=== PATIENT | female | born 1980 | race Two or more races ===

== ENCOUNTER 2021-01-24 10:02 | Emergency (ER) | payer SELFPAY ==
[~2021-01-24] VITALS: Ht 165.1 cm; Wt 88.7 kg
[2021-01-24 11:05] LABS: BASOPHILS % (AUTO) 0 % (0-1); EOSINOPHILS % (AUTO) 0 % (1-7); LYMPHOCYTES % (AUTO) 13 % (22-44); MEAN CORPUSCULAR HGB CONC 31.6 g/dL (32.4-35.8); MEAN PLATELET VOLUME 8.1 fL (7.4-10.4); MONOCYTES % (AUTO) 7 % (2-9); NEUTROPHILS % (AUTO) 79 % (42-75); PLATELET COUNT 399 x10^3/uL (130-400); RED BLOOD COUNT 5.32 x10^6/uL (3.82-5.3); RED CELL DISTRIBUTION WIDTH 16.3 % (9.6-15.2)
[2021-01-24 11:15] LABS: ALANINE AMINOTRANSFERASE 26 U/L (12-78); ALBUMIN 3.2 g/dL (3.4-5.0); ANION GAP 5 mmol/L (5-15); CALCIUM 8.7 mg/dL (8.5-10.1); CHLORIDE 108 mmol/L (98-107)
[2021-01-24 11:18] LABS: ALKALINE PHOSPHATASE 94 U/L (45-117); BILIRUBIN,TOTAL 0.5 mg/dL (0.2-1.0); CREATININE 0.57 mg/dL (0.55-1.02)
--- NOTE | 2021-01-24 12:26 | NUR ---
ICE CREAM SERVER: PT FAMILY MEMBER UP TO NURSING STATION, STATES SHE IS HAVING ALOT OF BREAST PAIN. EXPLAINED THAT ED IS CURRENTLY FILLED AND WILL CALL BACK WHEN AVAILABLE.
--- NOTE | 2021-01-24 12:31 | NUR ---
BEAMING INSPECTOR: PT TO ROOM FROM LOBBY
--- NOTE | 2021-01-24 12:32 | NUR ---
PT AMBULATORY TO ROOM FROM LOBBY, PT CHANGED INTO GOWN. MONITORS IN PLACE. FAMILY AT BS. CALL LIGHT WITHIN REACH
--- NOTE | 2021-01-24 12:38 | NUR ---
PA STUDENT AT
[2021-01-24] MEDS ORDERED: KETOROLAC 60 MG/2 ML ONE (12:57)
[2021-01-24] MEDS ORDERED: KETOROLAC 30 MG/1 ML IM ONE (13:00)
[2021-01-24] MEDS ORDERED: CEPHALEXIN 500 MG CAPSULE PO ONE (13:00)
[2021-01-24] MEDS ORDERED: CEPHALEXIN 500 MG CAPSULE ONE (13:03)
--- NOTE | 2021-01-24 13:37 | NUR ---
US AT BS. THIS RN WAS THE TAXATION ECONOMIST FOR US TECH
--- NOTE | 2021-01-24 14:15 | NUR ---
PA STUDENT AT
[2021-01-24] MEDS ORDERED: SULFAMETH./TRIMETHOPRIM DS 800MG/160MG TABLET ONE (14:16)
[2021-01-24] MEDS ORDERED: SULFAMETH./TRIMETHOPRIM DS 800MG/160MG TABLET PO ONE (14:30)
--- NOTE | 2021-01-24 15:18 | NUR ---
PT TO IR
--- NOTE | 2021-01-24 15:37 | NUR ---
PT BACK FROM IR
--- NOTE | 2021-01-24 15:45 | NUR ---
BREAK RN: PT BACK FROM IR. FAMILY AT BEDSIDE. VS STABLE. NO ACUTE DISTRESS NOTED. CALL LIGHT IN PLACE.
[2021-01-24 15:49] VITALS: BP 116/72
--- NOTE | 2021-01-24 16:46 | NUR ---
Patient given discharge instructions and RX, they have confirmed that they understand the instructions. Patient ambulatory with steady gait.
== END 2021-01-24 16:48 | disposition home or self-care (01) ==
LOC: ED 14:38
DX: N61.1 Abscess of the breast and nipple (principal)
CPT/HCPCS: 10030; 36415; 75989; 76642; 76942; 80053; 85025; 87070; 87205; 96372; 99285; J1885; 87077

== ENCOUNTER 2021-01-26 18:00 | Emergency (ER) | payer SELFPAY ==
[~2021-01-26] VITALS: Ht 162.6 cm; Wt 87.4 kg
--- NOTE | 2021-01-26 19:46 | NUR ---
clinical appeals reviewer: Pt ambulatory to room from lobby at this time.
--- NOTE | 2021-01-26 20:00 | NUR ---
PT AMBULATED TO ROOM FROM [facility]. PT CO LEFT BREAST ABSCESS THAT SHE GOT PARTIALLY DRAINED IN IR 3 DAYS AGO. SHE WAS SENT INOCENCIA DELMI ABX AND TOLD TO COME BACK IN 3 DAYS TO GET THE ABSCESS DRAINED AGAIN. PT STATED THAT SHE HAS BEEN EXPERIENCING FEVER/CHILLS YESTERDAY AND TODAY.
[2021-01-26] MEDS ORDERED: IBUPROFEN 600 MG TABLET ONE (20:26)
[2021-01-26] MEDS ORDERED: LIDOCAINE 1%, 20ML ONE (20:28)
[2021-01-26] MEDS ORDERED: IBUPROFEN 600 MG TABLET PO ONE (20:30)
--- NOTE | 2021-01-26 20:30 | NUR ---
PT TO IR
--- NOTE | 2021-01-26 21:43 | NUR ---
family updated that chart is up for review. denies any needs.
[2021-01-26] MEDS ORDERED: ONDANSETRON ODT 4 MG ONE (22:24)
[2021-01-26 22:27] VITALS: BP 113/71
== END 2021-01-26 22:29 | disposition home or self-care (01) ==
LOC: ED 21:14
DX: N61.1 Abscess of the breast and nipple (principal)
CPT/HCPCS: 19020; 87070; 87176; 87205; 88112; 88305; 99284; J3490

== ENCOUNTER 2021-02-02 17:47 | Emergency (ER) | payer SELFPAY ==
[~2021-02-02] VITALS: Ht 152.4 cm; Wt 190.0 kg
[2021-02-02 18:59] LABS: BASOPHILS % (AUTO) 0 % (0-1); EOSINOPHILS % (AUTO) 1 % (1-7); LYMPHOCYTES % (AUTO) 19 % (22-44); MEAN CORPUSCULAR HEMOGLOBIN 18.9 pg (27.0-34.8); MEAN CORPUSCULAR HGB CONC 31.8 g/dL (32.4-35.8); MEAN PLATELET VOLUME 8.4 fL (7.4-10.4); MONOCYTES % (AUTO) 7 % (2-9); NEUTROPHILS % (AUTO) 72 % (42-75); PLATELET COUNT 499 x10^3/uL (130-400); RED BLOOD COUNT 5.31 x10^6/uL (3.82-5.3); RED CELL DISTRIBUTION WIDTH 16.2 % (9.6-15.2)
[2021-02-02 19:05] LABS: CALCIUM 8.7 mg/dL (8.5-10.1); CHLORIDE 107 mmol/L (98-107)
[2021-02-02 19:14] LABS: ALBUMIN 3.1 g/dL (3.4-5.0); ANION GAP 7 mmol/L (5-15); CREATININE 0.67 mg/dL (0.55-1.02)
--- NOTE | 2021-02-02 19:18 | NUR ---
IN ROOM TO DISCUSS POC WITH PT. PT AT THIS TIME APREHENSIVE ABOUT PROCEDURE. PROVIDER AWARE AND TO SPEAK WITH PT
[2021-02-02] MEDS ORDERED: SODIUM CHLORIDE FLUSH 10ML SYR IVF ONE (20:30)
[2021-02-02] MEDS ORDERED: CLINDAMYCIN PMX 600MG/50ML 50 ML IV ONE (20:30)
[2021-02-02 20:32] VITALS: BP 112/73
[2021-02-02] MEDS ORDERED: CLINDAMYCIN PMX 600MG/50ML 50 ML ONE (20:39)
== END 2021-02-02 21:56 | disposition home or self-care (01) ==
LOC: ED 18:49
DX: L02.213 Cutaneous abscess of chest wall (principal)
CPT/HCPCS: 36415; 80048; 82040; 85025; 96365